=== PATIENT | male | born 2000 ===

== ENCOUNTER 2021-02-28 18:25 | Emergency (ER) | payer MEDICAID ==
[~2021-02-28] VITALS: Ht 188 cm; Wt 90.7 kg
--- NOTE | 2021-02-28 18:50 | NUR ---
1839pm Oral [facility] Therapist assumes care: 1st contact with patient, he is AOX4, complaining continuously about his future bills from this ER visit and the ambulance ride that he just got. Patient ambulated with steady gait. I explained to patient that we take care of patients regardless of their ability to pay. Dr Almodovar evaluated this patient earlier. Patient discharged to home in stable condition and steady gait. Written and verbal after care instructions given to patient. Patient verbalized understanding & compliance of instructions but refused to sign the discharge papers thinking the discharge papers are his bills or receipt for ER service, witnessed by smelter charger Andrei. Stressed follow up with his primary doctor or return to ER for worsening s/s.
== END 2021-02-28 18:41 | disposition home or self-care (01) ==
LOC: ER 18:26
DX: F10.129 Alcohol abuse with intoxication, unspecified (principal)
CPT/HCPCS: A4663